=== PATIENT | male | born 1985 | race Two or more races ===

== ENCOUNTER 2016-09-13 13:42 | Emergency (ER) | payer OTHER ==
[~2016-09-13] VITALS: Ht 170.2 cm; Wt 99.8 kg
--- NOTE | 2016-09-13 14:40 | RAD ---
Exam performed: CT scan of the head without contrast. Date of Service: 09/13/16. Comparison: None available. Clinical History: Headache, laceration after blunt trauma. Technique: Helical acquisitions are obtained from the foramen magnum to the vertex without intravenous administration of contrast. Findings: The ventricles are midline without evidence of dilatation. Normal bradley-white differentiation is maintained. There is no extra axial fluid collection, intraparenchymal hemorrhage or mass lesion. The visualized portions of the orbits, paranasal sinuses and the mastoid air cells appear clear. The calvarium is intact. Impression: 1. No acute intracranial process detected. PQRS Compliance Statement: One or more of the following individualized dose reduction techniques were utilized for this examination: 1. Automated exposure control 2. Adjustment of the mA and/or kV according to patient size 3. Use of iterative reconstruction technique
[2016-09-13] MEDS ORDERED: HYDROCODONE/APAP 5/325MG TABLET. PO ONE (15:15)
[2016-09-13] MEDS ORDERED: LIDOCAINE 1%/EPI 1:100,000 20 ML VIAL. IJ ONE (15:15)
[2016-09-13] MEDS ORDERED: DIPHTH,PERTUSS(ACELL),TET TOX 0.5 ML DISP.SYRIN. VAX IM ONE (15:15)
[2016-09-13] MEDS ORDERED: HYDR-971 PO (15:49)
--- NOTE | 2016-09-13 15:49 | PHYS DOC ---
Past Medical History Past Medical History: No Pertinent History Past Surgical History: Other Additional Past Surgical Histo: pancreas at age 3 Additional Information: chews tobacco Alcohol Use: None Drug Use: None Adult General Chief Complaint Chief Complaint: LACERATION/AVULSION HPI HPI 30-year-old male who had the lift on a pickup truck fall on the top of his head with no loss consciousness and a large scalp laceration measuring approximately 10 cm across the top of his head with mild venous oozing. He rates the headache that is 9 out of 10 on the pain scale. He denies any nausea or vomiting. He denies any visual disturbance. He denies any history of health problems Review of Systems Review of Systems Constitutional: Denies fever or chills [] Eyes: Denies change in visual acuity, redness, or eye pain [] HENT: Denies nasal congestion or sore throat [] Respiratory: Denies cough or shortness of breath [] Cardiovascular: No additional information not addressed in HPI [] GI: Denies abdominal pain, nausea, vomiting, bloody stools or diarrhea [] : Denies dysuria or hematuria [] Musculoskeletal: Denies back pain or joint pain [] Integument: Denies rash or skin lesions [] Neurologic: Has headache, denies focal weakness or sensory changes [] Endocrine: Denies polyuria or polydipsia [] Current Medications Current Medications Current Medications Medications (Trade) Dose Ordered Sig/Nimesh Start Time Stop Time Status Last Admin Dose Admin Acetaminophen/ Hydrocodone Bitart (Lortab 5/325) 1 tab 1X ONCE 09/13/16 15:15 09/13/16 15:16 DC 09/13/16 15:24 1 TAB Diphtheria/ Tetanus/Acell Pertussis (Boostrix) 0.5 ml ONCE ONCE 09/13/16 15:15 09/13/16 15:16 DC Lidocaine/ Epinephrine (Xylocaine 1%-Epi 1:100,000) 20 ml 1X ONCE 09/13/16 15:15 09/13/16 15:16 DC 09/13/16 15:25 20 ML Allergies Allergies Allergies Coded Allergies Type Severity Reaction Last Updated Verified No Known Drug Allergies 09/13/16 No Physical Exam Physical Exam Constitutional: Well developed, well nourished, no acute distress, non-toxic appearance. [] HENT: Normocephalic, atraumatic, bilateral external ears normal, oropharynx moist, no oral exudates, nose normal. [] Eyes: PERRLA, EOMI, conjunctiva normal, no discharge. [] Neck: Normal range of motion, no tenderness, supple, no stridor. [] Cardiovascular:Heart rate regular rhythm, no murmur [] Lungs & Thorax: Bilateral breath sounds clear to auscultation [] Abdomen: Bowel sounds normal, soft, no tenderness, no masses, no pulsatile masses. [] Skin: Warm, dry, no erythema, no rash. [] Back: No tenderness, no CVA tenderness. [] Extremities: No tenderness, no cyanosis, no clubbing, ROM intact, no edema. [] Neurologic: Alert and oriented X 3, normal motor function, normal sensory function, no focal deficits noted. [] Psychologic: Affect normal, judgement normal, mood normal. [] Current Patient Data Vital Signs Vital Signs Date Time Temp Pulse Resp B/P Pulse Ox O2 Delivery O2 Flow Rate FiO2 09/13/16 15:24 18 96 Room Air 09/13/16 14:15 98.2 84 126/78 98.2 EKG EKG [] Radiology/Procedures Radiology/Procedures CT of the head without contrast demonstrates the following: Findings: The ventricles are midline without evidence of dilatation. Normal bradley-white differentiation is maintained. There is no extra axial fluid collection, intraparenchymal hemorrhage or mass lesion. The visualized portions of the orbits, paranasal sinuses and the mastoid air cells appear clear. The calvarium is intact. Course & Med Decision Making Course & Med Decision Making Pertinent Labs and Imaging studies reviewed. (See chart for details) 30-year-old male who had a large scalp laceration that was repaired with approximately 12 jacek with adequate approximation and no active bleeding. He had a negative head CT. I will be providing a prescription for [place] with strict return precautions if he develops any worsening headache despite taking his pain medications. I instructed him to rest for the next 24 hours and to avoid any strenuous activities. I also instructed him to have the jacek removed in the next 7-10 days. Discharged without incident Dragon Disclaimer Dragon Disclaimer This electronic medical record was generated, in whole or in part, using a voice recognition dictation system. Laceration Repair Lac Repair Indication: Laceration Procedure: The patient was placed in the appropriate position and anesthesia around the scalp 1% lidocaine with epinephrine. The area was then normal saline. The laceration was stapled with 12 jacek The wound area was then dressed with gauze covering. Total repaired wound length: 10 cm. Other Items: None The patient tolerated the procedure well. Complications: None. Departure Departure Impression: Primary Impression: Scalp laceration Disposition: HOME, SELF-CARE Admitting Physician: Other Condition: STABLE Referrals: NO PCP (PCP) Patient Instructions: Laceration Care, Adult, [id number], Staple Wound Closure, [id number] Additional Instructions: Please follow up with her primary doctor in the next 7-10 days to have your jacek removed. Return to the ER if you develop any worsening of her bleeding or pain. Return to ER if you up any nausea or vomiting. Take your pain medication as needed for the next 1-2 days. If you are have persisting pain that is requiring pain medication you should come back to the ER for reevaluation. Scripts Hydrocodone/Apap 5-325 ([place] 5-325 Tablet)1 Each Tablet1 Tab PO PRN Q6HRS PRN PAIN #8 TAB Prov:KADIE HOLMAN DO 09/13/16 KADIE HOLMAN DO Sep 13, 2016 15:49
[2016-09-13 16:00] VITALS: BP 126/67
== END 2016-09-13 16:13 | disposition home or self-care (01) ==
LOC: ER 13:42
DX: S01.01XA Laceration without foreign body of scalp, initial encounter (principal); F17.223 Nicotine dependence, chewing tobacco, with withdrawal; W20.8XXA Other cause of strike by thrown, projected or falling object, initial encounter; Y93.89 Activity, other specified; Y92.89 Other specified places as the place of occurrence of the external cause; Y99.8 Other external cause status
CPT/HCPCS: 12004; 70450; 99284; J3490